=== PATIENT | male | born 1965 | race Two or more races ===

== ENCOUNTER 2025-02-08 06:02 | Inpatient (IN) | payer OTHER ==
[~2025-02-08] VITALS: Ht 180.3 cm; Wt 70.3 kg
--- NOTE | 2025-02-08 06:09 | NUR ---
PTE ALERTA Y ORIENTADO X3 REFIERE DOLOR EN ESPALDA BAJA Y FLANCO JULIANO DESDE HACE UNAS HORAS. NOTIFICA QUE ORINA POCO Y CON ARDOR. SE MIDEN SV Y SE UBICA.
[2025-02-08] MEDS ORDERED: ACETAMINOPHEN 500 MG GEL..CAP PO ONE ×2 (07:15→08:19)
[2025-02-08] MEDS ORDERED: TAMSULOSIN HCL 0.4 MG CAP PO ONE ×2 (07:15→08:19)
[2025-02-08] MEDS ORDERED: FAMOtidine 10 MG/ML (4ML VIAL) IV PUSH ONE (07:15)
[2025-02-08] MEDS ORDERED: 0.9 % SODIUM CHLORIDE 1,000 ML IV ONE (07:30)
[2025-02-08] MEDS ORDERED: FAMOTIDINE/PF 20 MG/2 ML VIAL ONE (08:19)
[2025-02-08 08:22] LABS: URINE APPEARANCE Clear; URINE BILIRRUBIN Negative (NEGATIVE); URINE BLOOD Trace; URINE COLOR Yellow; URINE GLUCOSE Negative (NEGATIVE); URINE KETONE Negative (NEGATIVE); URINE LEUKOCYTE Small; URINE NITRATE Negative; URINE PROTEIN Negative (NEGATIVE); URINE UROBILINOGEN 0.2 E.U./dl
[2025-02-08 08:25] LABS: BASO % 0.2 % (0.1-1.2); EOS # 0.03 (0.04-0.54); EOS % 0.2 % (0.7-7.0); LYMPH # 1.09 (1.18-3.74); LYMPH % 7.9 % (19.3-53.1); MEAN PLATELET VOLUME 8.70 fl (9.4-12.4); MONO # 0.97 (0.24-0.82); MONO % 7.0 % (4.7-12.5); NEUT # 11.69 (1.56-6.13); NEUT % 84.2 % (34.0-71.1); RED CELL DISTRIBUTION WIDTH 11.5 % (11.6-14.4)
[2025-02-08 08:26] LABS: URINE BACTERIA 15.5 uL (0.0-1933); URINE EPITHELIAL CELLS 4.6 uL (0.0-38.8); URINE RBC 13.4 uL (0.0-20.8); URINE WBC 158.8 uL (0.0-23.2)
--- NOTE | 2025-02-08 08:37 | NUR ---
PACIENTE ALERTA Y ORIENTADO X3. SE EDUCA SOBRE PROCESO DE HERMELINDO DE MUESTRAS, CANALIZACION Y ADMINISTRACION DE MEDICAMENTOS, REFIERE ENTENDER. SE EJECUTAN ORDENES BAJO MEDIDAS ASEPTICAS. SE HACE ENTREGA DE ENVASE PARA U/A. SE NOTIFICA CT PENDIENTE.
[2025-02-08 09:08] LABS: ERYTHROCYTE SEDIMENTATION RATE 30 mm/hr (0-20)
[2025-02-08 09:16] LABS: URINE CAST 0.14 uL (0.0-1.40)
[2025-02-08 10:26] LABS: ALT/SGPT 22.0 U/L (12-78); AST/SGOT 16.0 U/L (15-37); BILIRUBIN TOTAL 0.85 mg/dL (0.3-1.2); BUN CREA RATIO 14.0 (7.0-25.0); CREATININE SERUM 1.08 mg/dL (0.70-1.30); GFR 69.51; GLOBULINA 3.4 G/DL (2.4-3.5); GLUCOSE FASTING 107.0 mg/dL (65-100); OSMOLALITY SERUM 281.0 MOSM/KG (275-295)
[2025-02-08 10:52] LABS: PROSTATIC SPECIFIC ANTIGEN 61.3 NG/ML (0.010-4.00)
[2025-02-08] MEDS ORDERED: CIPROFLOXACIN IN 5 % DEXTROSE 200 ML IV SCH (11:34)
[2025-02-08] MEDS ORDERED: FINASTERIDE 5 MG TABLET PO SCH (11:39)
[2025-02-08] MEDS ORDERED: CIPROFLOXACIN IN 5 % DEXTROSE 400 MG/200 ML PIGGYBAG IV ONE ×2 (12:35→19:10)
[2025-02-08] MEDS ORDERED: ONDANSETRON HCL 4 MG in 0.9 % SODIUM CHLORIDE 50 ML IV PRN (18:45)
[2025-02-08] MEDS ORDERED: 0.9 % SODIUM CHLORIDE 1,000 ML IV SCH (18:45)
[2025-02-08] MEDS ORDERED: ACETAMINOPHEN 325 MG TABLET PO PRN (18:45)
[2025-02-08] MEDS ORDERED: KETOROLAC TROMETHAMINE 30 MG VIAL IU PRN (19:00)
[2025-02-08] MEDS ORDERED: KETOROLAC TROMETHAMINE 30 MG VIAL ONE (19:10)
[2025-02-09 02:56] VITALS: BP 107/59; O2SAT 98
[2025-02-09 08:34] VITALS: BP 163/63; O2SAT 98
[2025-02-09] MEDS ORDERED: FAMOTIDINE/PF 20 MG/2 ML VIAL IV SCH (09:00)
[2025-02-09] MEDS ORDERED: TAMSULOSIN HCL 0.4 MG CAP PO SCH (09:00)
[2025-02-09] MEDS ORDERED: KETOROLAC TROMETHAMINE 30 MG VIAL IV PRN (09:45)
[2025-02-09] MEDS ORDERED: ACETAMINOPHEN 500 MG GEL..CAP PO PRN (09:45)
[2025-02-09 16:00] VITALS: BP 106/66; O2SAT 98
[2025-02-09] MEDS ORDERED: MORPHINE SULFATE 2 MG/ML SYRINGE IV PRN (21:15)
[2025-02-10 01:05] VITALS: BP 103/56; O2SAT 100
[2025-02-10 06:38] LABS: BASO % 0.7 % (0.1-1.2); EOS # 0.20 (0.04-0.54); EOS % 3.4 % (0.7-7.0); LYMPH # 1.01 (1.18-3.74); LYMPH % 17.2 % (19.3-53.1); MEAN PLATELET VOLUME 9.30 fl (9.4-12.4); MONO # 0.53 (0.24-0.82); MONO % 9.0 % (4.7-12.5); NEUT # 4.06 (1.56-6.13); NEUT % 69.4 % (34.0-71.1); RED CELL DISTRIBUTION WIDTH 11.7 % (11.6-14.4)
[2025-02-10 07:52] LABS: BUN CREA RATIO 6.0 (7.0-25.0); CREATININE SERUM 0.95 mg/dL (0.70-1.30); GFR 80.6; GLUCOSE FASTING 100.0 mg/dL (65-100); OSMOLALITY SERUM 283.0 MOSM/KG (275-295)
[2025-02-10 07:53] LABS: PROSTATIC SPECIFIC ANTIGEN 68.3 NG/ML (0.010-4.00)
[2025-02-10 17:35] VITALS: BP 130/79; O2SAT 98
[2025-02-10] MEDS ORDERED: LACTOBACILLUS ACIDOPHILUS 1 CAP CAP PO SCH (17:37)
[2025-02-10] MEDS ORDERED: TAMSULOSIN HCL 0.4 MG CAP PO SCH (21:00)
[2025-02-11 02:02] VITALS: BP 116/69; O2SAT 96
[2025-02-11] MEDS ORDERED: BISACODYL 5 MG TABLET.EC PO SCH (09:00)
[2025-02-11 16:22] VITALS: BP 136/66; O2SAT 99
[2025-02-11] MEDS ORDERED: PHENAZOPYRIDINE HCL 100 MG TABLET PO SCH (17:00)
[2025-02-12 00:30] VITALS: BP 137/70; O2SAT 99
[2025-02-12 08:00] VITALS: BP 119/71; O2SAT 97
[2025-02-12 16:43] VITALS: BP 116/66; O2SAT 98
[2025-02-12] MEDS ORDERED: TAMS0.4C PO (22:25)
[2025-02-12] MEDS ORDERED: INTESTINEX680 M1 PO (22:26)
[2025-02-12] MEDS ORDERED: FINASTERIDE5 MG PO (22:26)
[2025-02-12] MEDS ORDERED: LEVOFLOXACIN750 MG PO (22:27)
[2025-02-12] MEDS ORDERED: KETO10TA2 PO (22:28)
[2025-02-12] MEDS ORDERED: PERCOCET 5-3251 EACH PO (22:28)
[2025-02-12] MEDS ORDERED: PEPCID AC20 MG PO (22:29)
[2025-02-12] MEDS ORDERED: DULCOLAX5 MG PO (22:30)
[2025-02-12] MEDS ORDERED: OxyCODONE HCL 5 MG TABLET (ROXICODONE) PO STA (22:43)
[2025-02-12] MEDS ORDERED: ACETAMINOPHEN 500 MG GEL..CAP PO STA (22:44)
== END 2025-02-13 06:10 | disposition home or self-care (01) | DRG 728 ==
LOC: ER 06:02 → SURH 18:36 → SURG 18:36 → SURH 21:39
PROVIDERS: General Practice; ADMIT Internal Medicine; ATTEND Internal Medicine
PROC: BW21ZZZ Computerized Tomography (CT Scan) of Abdomen and Pelvis (ICD-10-PCS; principal; 2025-02-08)
DX: N41.0 Acute prostatitis (principal); R97.20 Elevated prostate specific antigen [PSA]; R33.8 Other retention of urine; N20.0 Calculus of kidney; N28.1 Cyst of kidney, acquired; Z88.0 Allergy status to penicillin